=== PATIENT | male | born 1985 | race Caucasian/White ===

== ENCOUNTER → 2023-11-27 10:38 | Outpatient (REF) | payer OTHER, SELFPAY | LOC: RAD 10:38 | PROVIDERS: ATTENDING PHYSICIAN Radiology Diagnostic Radiology; FAMILY PHYSICIAN Physician Assistant Medical | DX: Z13.5 Encounter for screening for eye and ear disorders (principal) | CPT/HCPCS: 70030 ==

== ENCOUNTER → 2023-11-28 15:56 | Outpatient (REF) | payer OTHER, SELFPAY | LOC: MRI 3T 15:56 | PROVIDERS: ATTENDING PHYSICIAN Physician Assistant | DX: M25.561 Pain in right knee (principal) | CPT/HCPCS: 73721 ==

== ENCOUNTER 2023-12-06 06:26 | Day surgery (SDC) | payer OTHER, SELFPAY ==
[2023-12-06] VITALS (11 sets, daily range): BP systolic 128–150; BP diastolic 69–105; BMI 22.5
[2023-12-06] MEDS: TYLENOL 1000 MG PO (08:23)
[2023-12-06] MEDS: NORMOSOL-R 1000 IV (08:23)
[2023-12-06] MEDS: CELEBREX 200 MG PO (08:23)
--- NOTE | 2023-12-06 12:51 | PTCARENOTE ---
Addendum note Patient was seen by Dr Patel in PACU for hip/groin/thigh muscle discomfort which patient reports is not new. Will reach out to Deloris DHALIWAL, who saw patient in PACU and will order muscle relaxer. Patient is now more comfortable reports
pain is #7/10 and tolerable. Will transfer to [facility].
[2023-12-06] MEDS: ZANAFLEX 2 MG PO (13:48)
== END 2023-12-06 14:00 | disposition home or self-care (01) ==
LOC: SDS 06:26
PROVIDERS: ATTENDING PHYSICIAN Orthopaedic Surgery
DX: S83.241A Other tear of medial meniscus, current injury, right knee, initial encounter (principal); S83.511A Sprain of anterior cruciate ligament of right knee, initial encounter; X50.1XXA Overexertion from prolonged static or awkward postures, initial encounter; Y93.89 Activity, other specified
CPT/HCPCS: 29888; 29881

== ENCOUNTER 2024-01-09 19:04 | Outpatient (RCR) | payer OTHER, SELFPAY | END 2024-01-09 23:59 | disposition home or self-care (01) | LOC: RPT 19:04 | PROVIDERS: ATTENDING PHYSICIAN Orthopaedic Surgery; FAMILY PHYSICIAN Physician Assistant Medical | DX: S83.511D Sprain of anterior cruciate ligament of right knee, subsequent encounter (principal); X58.XXXD Exposure to other specified factors, subsequent encounter; Z98.890 Other specified postprocedural states | CPT/HCPCS: 97010; 97014; 97110; 97112; 97162; 97530 ==

== ENCOUNTER 2024-02-07 06:30 | Outpatient (RCR) | payer OTHER, SELFPAY | END 2024-02-07 23:59 | disposition home or self-care (01) | LOC: RPT 06:30 | PROVIDERS: ATTENDING PHYSICIAN Orthopaedic Surgery; FAMILY PHYSICIAN Physician Assistant Medical | DX: Z47.89 Encounter for other orthopedic aftercare (principal); Z73.6 Limitation of activities due to disability | CPT/HCPCS: 97010; 97014; 97110; 97112; 97530 ==

== ENCOUNTER 2024-03-13 09:05 | Outpatient (RCR) | payer OTHER, SELFPAY | END 2024-03-13 23:59 | disposition home or self-care (01) | LOC: RPT 09:05 | PROVIDERS: ATTENDING PHYSICIAN Orthopaedic Surgery; FAMILY PHYSICIAN Physician Assistant Medical | DX: Z98.890 Other specified postprocedural states (principal); Z73.6 Limitation of activities due to disability | CPT/HCPCS: 97010; 97014; 97110; 97112; 97140 ==

== ENCOUNTER 2024-03-18 08:17 | Outpatient (RCR) | payer OTHER, SELFPAY | END 2024-03-18 10:47 | disposition home or self-care (01) | LOC: RPT 08:17 | PROVIDERS: ATTENDING PHYSICIAN Orthopaedic Surgery; FAMILY PHYSICIAN Physician Assistant Medical | DX: Z47.89 Encounter for other orthopedic aftercare (principal); Z73.6 Limitation of activities due to disability; M62.81 Muscle weakness (generalized); M25.561 Pain in right knee | CPT/HCPCS: 97014; 97110; 97112 ==

== ENCOUNTER → 2024-05-27 06:56 | Outpatient (REF) | payer OTHER, SELFPAY | LOC: EMG 06:56 | PROVIDERS: ATTENDING PHYSICIAN Physical Medicine & Rehabilitation; FAMILY PHYSICIAN Physician Assistant Medical | DX: R20.0 Anesthesia of skin (principal); G56.01 Carpal tunnel syndrome, right upper limb; M21.331 Wrist drop, right wrist; M54.12 Radiculopathy, cervical region | CPT/HCPCS: 95886; 95910 ==

== ENCOUNTER → 2024-06-01 08:20 | Outpatient (REF) | payer OTHER, SELFPAY | LOC: MRI 3T 08:20 | PROVIDERS: ATTENDING PHYSICIAN Physical Medicine & Rehabilitation; FAMILY PHYSICIAN Physician Assistant Medical | DX: M54.12 Radiculopathy, cervical region (principal) | CPT/HCPCS: 72141 ==